=== PATIENT | female | born 1985 | race Hispanic/Latino ===

== ENCOUNTER → 2024-07-26 | Emergency (ER) | payer SELFPAY ==
[~2024-07-26] VITALS: Ht 165.1 cm; Wt 94.8 kg
[2024-07-26 01:42] VITALS: BP 130/86; PULSE 85; RESP 20; TEMP 97.5
--- NOTE | 2024-07-26 02:13 | NUR ---
PT CAME TO WINDOW, DECIDED TO LEAVE. BLEEDING FROM NOSE STOPPED; STATES IF BLEEDING WORSENS, WILL COME BACK.
== END | disposition left against medical advice (07) ==
LOC: EDH 01:37
DX: R04.0 Epistaxis (principal); Z53.21 Procedure and treatment not carried out due to patient leaving prior to being seen by health care provider